=== PATIENT | female | born 1975 | race Two or more races ===

== ENCOUNTER 2020-03-23 12:39 | Outpatient (CLI) | payer OTHER | END 2020-03-23 12:49 | disposition home or self-care (01) | LOC: LAB 12:39 | PROVIDERS: ATTEND General Practice | DX: R10.2 Pelvic and perineal pain (principal); R10.30 Lower abdominal pain, unspecified; Z12.11 Encounter for screening for malignant neoplasm of colon ==

== ENCOUNTER 2020-03-23 13:39 | Outpatient (CLI) | payer OTHER | END 2020-03-23 13:54 | disposition home or self-care (01) | LOC: SONOGRAMA 13:39 | PROVIDERS: ATTEND General Practice | DX: R10.2 Pelvic and perineal pain (principal); R10.30 Lower abdominal pain, unspecified ==

== ENCOUNTER 2020-05-01 14:05 | Outpatient (CLI) | payer OTHER | END 2020-05-01 15:00 | disposition home or self-care (01) | LOC: OFIC 805 14:05 | PROVIDERS: ATTEND Otolaryngology Otology & Neurotology | DX: J02.8 Acute pharyngitis due to other specified organisms (principal); R13.19 Other dysphagia; K21.0 Gastro-esophageal reflux disease with esophagitis ==

== ENCOUNTER 2024-10-01 22:50 | Emergency (ER) | payer OTHER ==
[~2024-10-01] VITALS: Ht 165.1 cm; Wt 68.0 kg
[2024-10-01] MEDS ORDERED: PHENAZOPYRIDINE HCL 100 MG TABLET PO ONE (23:30)
[2024-10-01] MEDS ORDERED: FAMOtidine 10 MG/ML (4ML VIAL) IV PUSH ONE (23:30)
[2024-10-01] MEDS ORDERED: CEFTRIAXONE SODIUM 1,000 MG VIAL IM ONE (23:30)
[2024-10-01] MEDS ORDERED: TAMSULOSIN HCL 0.4 MG CAP PO ONE (23:30)
[2024-10-01] MEDS ORDERED: KETOROLAC TROMETHAMINE 60 MG VIAL IM ONE (23:30)
[2024-10-01] MEDS ORDERED: TAMS0.4C PO (23:31)
[2024-10-01] MEDS ORDERED: PROTONIX40 MG PO (23:31)
[2024-10-01] MEDS ORDERED: PYRIDIUM DS200 MG PO (23:31)
[2024-10-01] MEDS ORDERED: KETO10TA2 PO (23:31)
[2024-10-01] MEDS ORDERED: BACTRIM DS TAB1 EACH PO (23:31)
[2024-10-02] MEDS ORDERED: TAMSULOSIN HCL 0.4 MG CAP PO ONE (00:38)
[2024-10-02] MEDS ORDERED: PHENAZOPYRIDINE HCL 100 MG TABLET PO ONE (00:38)
[2024-10-02] MEDS ORDERED: KETOROLAC TROMETHAMINE 60 MG VIAL IM ONE (00:38)
[2024-10-02] MEDS ORDERED: CEFTRIAXONE SODIUM 1,000 MG VIAL ONE (00:38)
[2024-10-02 01:12] LABS: HEMATOCRIT 38.4 % (36.0-45.00); HEMOGLOBIN 12.7 g/dL (12.0-15.00); MEAN CELL VOLUME 80.4 fL (80.00-100.00); MEAN CORPUSCULAR HEMOGLOBIN 26.7 pg (27.00-32.0); MEAN CORPUSCULAR HGB CONC 33.2 g/dl (32.0-36.0); PLATELET COUNT 263 K/uL (150-450); RED BLOOD COUNT 4.77 M/uL (4.00-6.00); RED CELL DISTRIBUTION WIDTH 14.2 % (11.5-14.5)
[2024-10-02 02:04] LABS: PH,URINE 5.5 (5.0-8.0); URINE APPEARANCE Turbid; URINE BILIRRUBIN Negative (NEGATIVE); URINE BLOOD Moderate; URINE COLOR Yellow; URINE GLUCOSE Negative (NEGATIVE); URINE KETONE Trace (NEGATIVE); URINE LEUKOCYTE Large; URINE NITRATE Positive; URINE UROBILINOGEN 0.2 E.U./dl
[2024-10-02 02:08] LABS: URINE BACTERIA 5243.4 uL (0.0-1933); URINE EPITHELIAL CELLS 45.1 uL (0.0-38.8); URINE RBC 136.5 uL (0.0-20.8)
[2024-10-02 02:16] LABS: URINE CAST 0.14 uL (0.0-1.40); URINE PROTEIN 100 (NEGATIVE); URINE WBC > 5548.3 uL (0.0-23.2)
== END 2024-10-02 02:48 | disposition home or self-care (01) ==
LOC: ER 22:52
PROVIDERS: General Practice
DX: N39.0 Urinary tract infection, site not specified (principal)